=== PATIENT | female | born 1935 | race Two or more races ===

== ENCOUNTER 2020-05-03 18:32 | Inpatient (IN) | payer OTHER ==
[~2020-05-03] VITALS: Ht 144.8 cm; Wt 73.8 kg
[2020-05-03 19:18] LABS: Basophils # (auto) 0 10 ^3/uL (0-0.2); Basophils % (auto) 0.1 % (0.0-2.0); Eosinophils # (auto) 0 10 ^3/uL (0-0.8); Eosinophils % (auto) 0.4 % (0.0-7.0); Hematocrit 40.1 % (36.0-46.0); Hemoglobin 13.3 g/dL (12.2-16.2); Lymphocytes # (auto) 0.6 10 ^3/uL (0.4-5.4); Lymphocytes % (auto) 9.3 % (10.0-50.0); Mean Corpuscular Hemoglobin 31.6 pg (28.0-32.0); Mean Corpuscular Hgb Conc. 33.3 g/dL (32.0-36.0); Monocytes # (auto) 0 10 ^3/uL (0-1.3); Monocytes % (auto) 0.4 % (0.0-12.0); Neutrophils % (auto) 89.8 % (37.0-80.0); Nucleated Red Blood Cells % 0.1 %; Platelet Count (auto) 215 10^3/uL (140-450); Red Blood Cells 4.22 10^6/uL (4.0-5.20); Red Cell Distribution Width 13.6 % (11.8-14.3); White Blood Cell 6.7 10^3/uL (4.4-10.8)
[2020-05-03 19:32] LABS: INR 1.01 (0.9-1.15); Partial Thromboplastin Time 23.1 sec (23.0-31.2)
[2020-05-03 19:34] LABS: Albumin 2.8 g/dL (3.4-5.0); Calcium 8.9 mg/dL (8.5-10.1); Magnesium 1.6 mg/dL (1.6-2.6); Potassium 3.6 mmol/L (3.5-5.1)
[2020-05-03 19:36] LABS: Lactic Acid w/Reflex 4.2 mmol/L (0.4-2.0)
[2020-05-03 19:43] LABS: Bilirubin, Total 0.5 mg/dL (0.2-1.0); Total Protein 7.6 g/dL (6.4-8.2)
[2020-05-03] MEDS ORDERED: ACETAMINOPHEN 325 MG TAB PO ONE (19:45)
[2020-05-04] MEDS ORDERED: cefTRIAXone 1GM/50ML D5W 50 ML IV ONE (00:15)
[2020-05-04] MEDS ORDERED: ASPirin 81 mg TAB PO ONE (00:15)
[2020-05-04] MEDS ORDERED: NITROGLYCERIN 0.4 MG SL TAB SL PRN (00:30)
[2020-05-04] MEDS ORDERED: ACETAMINOPHEN 500 MG TAB PO PRN (00:30)
[2020-05-04] MEDS ORDERED: DEXTROSE (50%) 50ML SYRG IV PRN (00:30)
[2020-05-04] MEDS ORDERED: DOCUSATE SOD 100 MG CAP PO PRN (00:30)
[2020-05-04] MEDS ORDERED: ALUM & MAG HYDROX-SIMETH LIQ(MAALOX) 30 ML PO PRN (00:30)
[2020-05-04] MEDS ORDERED: ONDANSETRON HCL 4 MG/2 ML VIAL IV PRN (00:30)
[2020-05-04] MEDS: SODIUM CHLORIDE 0.9% 1,000 ML IV SCH ×2 (00:43→10:42)
[2020-05-04] MEDS ORDERED: DexAMETHasone SOD PHOS 10MG/1ML VIAL INJ IV SCH (01:00)
[2020-05-04 03:18] LABS: BUN/Creatinine Ratio 11.9; Calcium 8.5 mg/dL (8.5-10.1); Magnesium 1.3 mg/dL (1.6-2.6); Potassium 4.1 mmol/L (3.5-5.1)
[2020-05-04] MEDS: InsuLIN REG 1unit/0.01ml Soln (100units/ml) SC SCH ×6 (03:38→23:49)
[2020-05-04 03:50] LABS: Urine Bacteria MOD /hpf (None Seen); Urine Blood Negative /uL (Negative); Urine Hyaline Cast MANY /lpf (0 - 2); Urine Mucus FEW (None Seen); Urine Specific Gravity 1.015 (1.001-1.035); Urine WBC 65 /hpf (0 - 5)
[2020-05-04] MEDS: ACCU-CHEK COMFORT CURVE STRIP VI SCH ×6 (04:05→23:49)
[2020-05-04] MEDS ORDERED: HETASTARCH 500 ML IV ONE ×2 (05:09→05:15)
[2020-05-04] MEDS ORDERED: ALBUTEROL SULF HFA 90MCG INH 200DOSE IN SCH (06:00)
[2020-05-04 07:22] LABS: Hematocrit 29.9 % (36.0-46.0); Hemoglobin 9.9 g/dL (12.2-16.2); Mean Corpuscular Hemoglobin 31.5 pg (28.0-32.0); Mean Corpuscular Hgb Conc. 33.2 g/dL (32.0-36.0); Mean Corpuscular Volume 94.9 fL (80.0-100.0); Platelet Count (auto) 159 10^3/uL (140-450); Red Blood Cells 3.16 10^6/uL (4.0-5.20); Red Cell Distribution Width 13.7 % (11.8-14.3); White Blood Cell 16.2 10^3/uL (4.4-10.8)
[2020-05-04] MEDS: CARVEDILOL 3.125 MG TAB PO SCH ×2 (07:39→22:26)
[2020-05-04] MEDS: ENALAPRIL MALEATE 2.5 MG TAB PO SCH ×2 (07:39→22:00)
[2020-05-04] MEDS: CLOPIDOGREL BISULFATE 75 MG TAB PO SCH (07:44)
[2020-05-04] MEDS: ASPirin 81 mg TAB PO SCH (07:44)
[2020-05-04] MEDS: cefTRIAXone 1GM/50ML D5W 50 ML IV SCH (07:46)
[2020-05-04 07:48] LABS: Basophils % (manual) 0 (0.0-2.0); Blast Cells 0; Eosinophils % (manual) 0 (0-7); Metamyelocytes % 0; Myelocytes % 0; Promyelocytes % 0; Reactive Lymphocytes 0
[2020-05-04] MEDS ORDERED: ENOXAPARIN SOD 80 MG/0.8ML SYRINGE SC SCH ×2 (08:00→10:00)
[2020-05-04 08:37] LABS: Band Neutrophils % (manual) 15; Lymphocytes % (manual) 1 (10.0-50.0); Monocytes % (manual) 1 (0-12)
[2020-05-04] MEDS ORDERED: ZINC SULFATE 220mg CAP or TAB PO SCH (10:00)
[2020-05-04] MEDS ORDERED: ASCORBIC ACID 1,000 MG TAB PO SCH (10:00)
[2020-05-04] MEDS ORDERED: ENOXAPARIN SOD 40 MG/0.4 ML SYRINGE SC SCH (10:00)
[2020-05-04] MEDS ORDERED: DOXYCYCLINE 100 MG TAB/CAP PO SCH (10:00)
[2020-05-04] MEDS: metroNIDAZOLE 500MG/100ML 100 ML IV SCH ×2 (11:43→20:31)
[2020-05-04] MEDS ORDERED: FUROSEMIDE 40 MG/4 ML VIAL IV ONE (14:00)
[2020-05-04] MEDS ORDERED: PANTOPRAZOLE 40 MG/10 ML VIAL INJ IV ONE (14:00)
--- NOTE | 2020-05-04 14:26 | NUR ---
Pt is an alert and oriented female that resides with her family. Pt functioned independently and managed her own ADL's prior to admission. Pt provided information on various post hospital options and resources i.e. private pay caregivers, home health or possible placement. Pt declines resources at this time and states she will be returning home. Will continue to monitor for any arising concerns or issues that will require a reassessment in her discharge plan. Addendum: 05/04/20 at 1433 by BLAIR DURAN Amended: Links added.
[2020-05-04] MEDS: ATORVASTATIN 20 MG TAB PO SCH (22:26)
--- NOTE | 2020-05-04 23:25 | NUR ---
Telemetry admit from [facility] admitted to Telemetry unit after SBAR received. Patient oriented to Sylvia Bagley RN primary RN, unit, room, bed, and unit policies regarding patient care and visiting hours. Patient now on continuous telemetry monitoring, tele box #[id number]. Patient placed on bedside oxygen, weighed by bedscale and encouraged to call if they need something. All questions and concerns addressed, patient verbalized understanding. Bed is in lowest locked position with call light in reach of the patient.
[2020-05-04 23:51] VITALS: BP 124/66
[2020-05-05] MEDS ORDERED: METO25TA5 PO (00:05)
[2020-05-05] MEDS ORDERED: ISOS30TA4 PO (00:05)
[2020-05-05] MEDS ORDERED: FAMO20TA10 PO (00:05)
[2020-05-05] MEDS ORDERED: COLC1CAP PO (00:05)
[2020-05-05] MEDS ORDERED: LEVO100T8 PO (00:05)
[2020-05-05] MEDS ORDERED: INSU1INJ4 SC (00:05)
[2020-05-05] MEDS ORDERED: PRE5T PO (00:05)
[2020-05-05] MEDS ORDERED: LISI-275 PO (00:05)
[2020-05-05] MEDS ORDERED: HYDR1TAB97 PO (00:05)
[2020-05-05] MEDS ORDERED: ATOR40TA52 PO (00:05)
[2020-05-05] MEDS ORDERED: CITA-77 PO (00:05)
[2020-05-05] MEDS ORDERED: CLOP75TA41 PO (00:05)
[2020-05-05] MEDS: ACCU-CHEK COMFORT CURVE STRIP VI SCH ×5 (03:31→20:43)
[2020-05-05] MEDS: metroNIDAZOLE 500MG/100ML 100 ML IV SCH ×3 (03:31→20:43)
[2020-05-05] MEDS: ACETAMINOPHEN 325 MG TAB PO PRN ×2 (03:42→21:54)
[2020-05-05] MEDS: InsuLIN REG 1unit/0.01ml Soln (100units/ml) SC SCH ×5 (03:43→20:44)
[2020-05-05 05:13] VITALS: BP 99/53
[2020-05-05 05:51] LABS: Hematocrit 31.9 % (36.0-46.0); Hemoglobin 10.6 g/dL (12.2-16.2); Mean Corpuscular Hemoglobin 31.6 pg (28.0-32.0); Mean Corpuscular Hgb Conc. 33.4 g/dL (32.0-36.0); Mean Corpuscular Volume 94.7 fL (80.0-100.0); Platelet Count (auto) 163 10^3/uL (140-450); Red Blood Cells 3.37 10^6/uL (4.0-5.20); Red Cell Distribution Width 13.3 % (11.8-14.3); White Blood Cell 6.8 10^3/uL (4.4-10.8)
[2020-05-05 06:09] LABS: Albumin 1.9 g/dL (3.4-5.0); Potassium 4.3 mmol/L (3.5-5.1)
[2020-05-05 06:12] LABS: BUN/Creatinine Ratio 18.6; Bilirubin, Total 0.3 mg/dL (0.2-1.0); Total Protein 5.7 g/dL (6.4-8.2)
[2020-05-05 06:45] LABS: Basophils % (manual) 0 (0.0-2.0); Blast Cells 0; Eosinophils % (manual) 0 (0-7); Myelocytes % 0; Promyelocytes % 0; Reactive Lymphocytes 0
--- NOTE | 2020-05-05 07:35 | NUR ---
Opening Shift Note Assumed care of patient, awake and alert. No S/S of distress/SOB, patient denies pain at this time. Updated on POC and instructed to call for assistance PRN. Bed locked in lowest position, side rails up x2, call light within reach. Fall precautions in place. Will continue to monitor for changes Q1hr and PRN.
[2020-05-05 07:37] LABS: Band Neutrophils % (manual) 16; Lymphocytes % (manual) 5 (10.0-50.0); Metamyelocytes % 2; Monocytes % (manual) 1 (0-12)
[2020-05-05] MEDS: FUROSEMIDE 40 MG/4 ML VIAL IV SCH ×2 (08:00→10:00)
[2020-05-05] MEDS ORDERED: ADENOSINE 58 MG in GIVE UN-DILUTED 0 ML IV STA (08:19)
[2020-05-05] MEDS ORDERED: ALBUMIN 25% 100 ML IV ONE (09:30)
[2020-05-05] MEDS: cefTRIAXone 1GM/50ML D5W 50 ML IV SCH (09:55)
[2020-05-05] MEDS: PANTOPRAZOLE 40 MG/10 ML VIAL INJ IV SCH (09:55)
[2020-05-05] MEDS: DOXYCYCLINE 100 MG TAB/CAP PO SCH ×2 (09:55→21:53)
[2020-05-05] MEDS: ASPirin 81 mg TAB PO SCH (09:55)
[2020-05-05] MEDS: ENOXAPARIN SOD 30 MG/0.3 ML SYRINGE SC SCH (09:56)
[2020-05-05] MEDS: CLOPIDOGREL BISULFATE 75 MG TAB PO SCH (09:56)
[2020-05-05] MEDS: CARVEDILOL 3.125 MG TAB PO SCH ×2 (10:00→21:55)
[2020-05-05] MEDS: ENALAPRIL MALEATE 2.5 MG TAB PO SCH ×2 (10:00→22:55)
[2020-05-05 10:18] VITALS: BP 91/52
[2020-05-05 11:26] VITALS: BP 133/65
[2020-05-05] MEDS ORDERED: MILK OF MAGNESIA 30ML SUSP PO ONE (12:45)
[2020-05-05 13:00] VITALS: BP 108/47
[2020-05-05 17:00] VITALS: BP 121/58
[2020-05-05] MEDS ORDERED: FUROSEMIDE 40 MG/4 ML VIAL IV SCH (18:00)
--- NOTE | 2020-05-05 19:40 | NUR ---
Opening Shift Note Assumed care of patient, awake and alert. No S/S of distress/SOB or pain. Discussed on POC and to call for assist PRN, patient verbalized understanding. Safety precaution in place, call light within reach, bed alarm on, will continue to monitor for changes Q1hr and PRN.
--- NOTE | 2020-05-05 20:50 | NUR ---
Spoke to daughter Araceli and updated on patient's status and POC
[2020-05-05] MEDS: ATORVASTATIN 20 MG TAB PO SCH (21:53)
[2020-05-05 22:00] VITALS: BP 123/61
[2020-05-06] MEDS: ACCU-CHEK COMFORT CURVE STRIP VI SCH ×7 (00:10→23:55)
[2020-05-06] MEDS: InsuLIN REG 1unit/0.01ml Soln (100units/ml) SC SCH ×6 (00:11→20:20)
[2020-05-06] MEDS: metroNIDAZOLE 500MG/100ML 100 ML IV SCH ×3 (04:15→20:14)
--- NOTE | 2020-05-06 04:55 | NUR ---
Patient complained of shakiness and feeling cold. Checked blood sugar and its 118, Temp 98.6, will continue to monitor
[2020-05-06 05:00] VITALS: BP 126/59
--- NOTE | 2020-05-06 07:30 | NUR ---
Opening Shift Note Assumed care of patient, awake and alert. No S/S of distress/SOB or pain. Instructed on POC and to call for assist PRN, will continue to monitor for changes Q1hr and PRN. Fall precautions in place per safety protocol.
--- NOTE | 2020-05-06 08:58 | NUR ---
LOW BP Patient's BP 77/26 reassessed and obtained BP of 87/34. Paged Hospitalist robotics application engineer, MD Graves. Awaiting call back at this time.
[2020-05-06 09:00] VITALS: BP 87/34
--- NOTE | 2020-05-06 09:20 | NUR ---
Received new orders for Bolus 250 ml/hr from MD Graves. Will carry out new orders and cont to monitor patient.
[2020-05-06] MEDS: CARVEDILOL 3.125 MG TAB PO SCH ×2 (10:00→21:35)
[2020-05-06] MEDS: FUROSEMIDE 40 MG/4 ML VIAL IV SCH (10:00)
[2020-05-06] MEDS: ENALAPRIL MALEATE 2.5 MG TAB PO SCH ×2 (10:00→23:53)
--- NOTE | 2020-05-06 10:00 | NUR ---
Reassessed BP 102/40 HR 108. Will cont to monitor patient.
[2020-05-06] MEDS: CLOPIDOGREL BISULFATE 75 MG TAB PO SCH (10:10)
[2020-05-06] MEDS: PANTOPRAZOLE 40 MG/10 ML VIAL INJ IV SCH (10:10)
[2020-05-06] MEDS: cefTRIAXone 1GM/50ML D5W 50 ML IV SCH (10:10)
[2020-05-06] MEDS: ASPirin 81 mg TAB PO SCH (10:10)
[2020-05-06] MEDS: DOXYCYCLINE 100 MG TAB/CAP PO SCH ×2 (10:11→21:34)
[2020-05-06] MEDS: ENOXAPARIN SOD 30 MG/0.3 ML SYRINGE SC SCH (10:11)
--- NOTE | 2020-05-06 10:20 | NUR ---
BP after Bolus 112/49. Will cont to monitor patient.
--- NOTE | 2020-05-06 12:53 | NUR ---
Hospitalist MD Kessler at bedside, aware of patient status. New orders received for continuous fluids, DC orders for lasix, and BID Glucerna. Will carry out new orders and cont to monitor patient.
[2020-05-06 13:00] VITALS: BP 100/85
[2020-05-06] MEDS: SODIUM CHLORIDE 0.9% 1,000 ML IV SCH ×2 (13:00→21:00)
[2020-05-06 16:58] VITALS: BP 104/44
[2020-05-06] MEDS: Glucerna Carbsteady SHAKE Vanilla 8oz PO SCH (18:00)
--- NOTE | 2020-05-06 19:30 | NUR ---
Opening Shift Note Assumed care of patient, awake and alert. No S/S of distress/SOB or pain. Instructed on POC and to call for assist PRN, will continue to monitor for changes Q1hr and PRN.
[2020-05-06] MEDS: ATORVASTATIN 20 MG TAB PO SCH (21:34)
[2020-05-06 22:00] VITALS: BP 114/64
[2020-05-07] MEDS: InsuLIN REG 1unit/0.01ml Soln (100units/ml) SC SCH ×5 (04:00→16:00)
[2020-05-07] MEDS: metroNIDAZOLE 500MG/100ML 100 ML IV SCH ×2 (04:17→12:00)
[2020-05-07] MEDS: SODIUM CHLORIDE 0.9% 1,000 ML IV SCH ×2 (04:23→13:00)
[2020-05-07] MEDS: ACCU-CHEK COMFORT CURVE STRIP VI SCH ×4 (04:33→16:00)
[2020-05-07 05:00] VITALS: BP 103/49
[2020-05-07] MEDS: Glucerna Carbsteady SHAKE Vanilla 8oz PO SCH (08:00)
[2020-05-07] MEDS: PANTOPRAZOLE 40 MG/10 ML VIAL INJ IV SCH (08:57)
[2020-05-07] MEDS: cefTRIAXone 1GM/50ML D5W 50 ML IV SCH (08:58)
[2020-05-07] MEDS: ASPirin 81 mg TAB PO SCH (08:58)
[2020-05-07] MEDS: DOXYCYCLINE 100 MG TAB/CAP PO SCH (08:58)
[2020-05-07] MEDS: CLOPIDOGREL BISULFATE 75 MG TAB PO SCH (08:58)
[2020-05-07] MEDS: ENOXAPARIN SOD 30 MG/0.3 ML SYRINGE SC SCH (08:58)
[2020-05-07] MEDS: CARVEDILOL 3.125 MG TAB PO SCH (08:59)
[2020-05-07] MEDS: ENALAPRIL MALEATE 2.5 MG TAB PO SCH (08:59)
[2020-05-07 09:00] VITALS: BP 151/81
--- NOTE | 2020-05-07 11:36 | NUR ---
Torrez catheter dc'd Order to discontinue torrez catheter. Torrez dc'd with clean technique following deflation of balloon. Patient tolerated well with no complaints of pain. Continue care. 500ML OF LIGHT GAVIN URINE EMPTIED.
[2020-05-07 13:00] VITALS: BP 122/46
--- NOTE | 2020-05-07 16:59 | NUR ---
Discharge instructions given as ordered. Encourage to follow up with PMD as instructed. PATIENT INSTRUCTED TO FOLLOW UP WITH PCP AND GI SPECIALIST. PHONE NUMBER AND ADDRESS PROVIDED. All questions and concerns addressed. Patient verbalized understanding. Medication reconciliation form completed and copy given to patient. IV'S removed with catheter intact, pressure dressing applied Telemetry unit returned to ICU. Patient taken to vehicle via wheelchair with all personal belongings, accompanied by staff and family member. No distress noted at time of departure.
== END 2020-05-07 16:51 | disposition home or self-care (01) | DRG 871 ==
LOC: ER 18:32 → EDBD 18:32 → TELE 18:33 → TELE-CENTR 05-04 23:22
PROVIDERS: ADMIT Hospitalist; ATTEND Family Medicine
DX: A41.9 Sepsis, unspecified organism (principal); J96.01 Acute respiratory failure with hypoxia; I21.A1 Myocardial infarction type 2; K57.92 Diverticulitis of intestine, part unspecified, without perforation or abscess without bleeding; E11.65 Type 2 diabetes mellitus with hyperglycemia; E66.9 Obesity, unspecified; Z88.6 Allergy status to analgesic agent; Z20.828 Contact with and (suspected) exposure to other viral communicable diseases; E78.5 Hyperlipidemia, unspecified; I10 Essential (primary) hypertension; I25.10 Atherosclerotic heart disease of native coronary artery without angina pectoris; I27.20 Pulmonary hypertension, unspecified; K59.00 Constipation, unspecified; N28.1 Cyst of kidney, acquired; Z68.32 Body mass index [BMI] 32.0-32.9, adult
CPT/HCPCS: 36415; 71045; 74176; 78452; 80048; 80053; 80061; 81001; 82150; 82728; 82962; 83036; 83605; 83615; 83690; 83735; 83880; 84484; 85007; 85025; 85027; 85610; 85730; 86141; 87040; 87077; 87081; 87086; 87186; 93005; 93017; 93306; 97110; 97116; 97530; C9113; G0378; J0153; J0696; J1100; J1815; J2405; J3490; P9047